=== PATIENT | male | born 1955 | race Caucasian/White ===

== ENCOUNTER 2022-09-21 09:38 | Emergency (ER) | payer OTHER ==
[~2022-09-21] VITALS: Ht 182.9 cm; Wt 103.0 kg
[2022-09-21 09:53] VITALS: BP 159/85
--- NOTE | 2022-09-21 10:00 | NUR ---
Pt ambulated to bed 03 with steady gait.
[2022-09-21] MEDS ORDERED: DEXAMETHASONE 10 MG/ML VIAL IM ONE (10:20)
[2022-09-21] MEDS ORDERED: PRED20TA5 PO (10:24)
--- NOTE | 2022-09-21 10:31 | NUR ---
here for rash both for over two months, pt already seen by md, decadron inj given, no distress noted, will be dc home
[2022-09-21 10:46] VITALS: BP 132/76
--- NOTE | 2022-09-21 10:46 | NUR ---
Patient discharged with v/s stable. Written and verbal after care instructions given and explained. Patient verbalized understanding. Ambulatory with steady gait. All questions addressed prior to discharge. Advised to follow up with PMD.
== END 2022-09-21 10:46 | disposition home or self-care (01) ==
LOC: MED 09:38
DX: L50.9 Urticaria, unspecified (principal)
CPT/HCPCS: 96372; 99283; J1100

== ENCOUNTER 2022-10-11 09:32 | Emergency (ER) | payer OTHER ==
[~2022-10-11] VITALS: Ht 182.9 cm; Wt 103.4 kg
[~2022-10-11 09:32] MED LIST: PRED20TA5 PO
[2022-10-11 09:41] VITALS: BP 145/76
--- NOTE | 2022-10-11 11:04 | NUR ---
67 y/o male bib self with c/o right and left leg swelling and redness. Per patient, he is having an increase in swelling to bilateral legs. Right leg dawson is noted to have redness, swelling and heat. Per patient left dawson is "leaking clear fluids" and is "worse than the right leg." Patient states rash started 1 week ago. Patient was here on 09/21/22. Patient states all of this started after his pneumococcal vaccine. Patient is unable to go to PCP d/t insurance. Medical History: Eczema NKDA
--- NOTE | 2022-10-11 12:08 | NUR ---
Dr. Carbajal evaluating patient at bedside.
[2022-10-11] MEDS ORDERED: CLOB-114 TP ×2 (12:55→13:01)
[2022-10-11] MEDS ORDERED: PRED20TA5 PO (12:59)
[2022-10-11] MEDS ORDERED: DEXAMETHASONE 10 MG/ML VIAL IM ONE (13:10)
[2022-10-11 13:31] VITALS: BP 157/80
--- NOTE | 2022-10-11 13:31 | NUR ---
Patient discharged with v/s stable. Written and verbal after care instructions given and explained. Patient alert, oriented and verbalized understanding of instructions. Ambulatory with steady gait. All questions addressed prior to discharge. ID band removed. Patient advised to follow up with PMD. Rx of CLOBETASOL EMOLLIENT, DELTASONE given. Patient educated on indication of medication including possible reaction and side effects. Opportunity to ask questions provided and answered.
== END 2022-10-11 13:31 | disposition home or self-care (01) ==
LOC: MED 09:32
DX: L20.9 Atopic dermatitis, unspecified (principal); Z79.899 Other long term (current) drug therapy
CPT/HCPCS: 96372; 99283; J1100